=== PATIENT | female | born 1990 | race Asian ===

== ENCOUNTER 2017-05-24 21:00 | Inpatient (IN) | payer MEDICAID, SELFPAY ==
[~2017-05-24] VITALS: Ht 162.6 cm; Wt 61.9 kg
[2017-05-24] MEDS ORDERED: MORPHINE SULFATE 4 MG/ML, 1ML ONE (21:50)
[2017-05-24] MEDS ORDERED: ONDANSETRON 2MG/ML, 2ML ONE (21:51)
[2017-05-24] MEDS ORDERED: KETOROLAC 30 MG/1 ML ONE (21:51)
[2017-05-24] MEDS ORDERED: KETOROLAC 30 MG/1 ML IVPush ONE (22:00)
[2017-05-24] MEDS ORDERED: ONDANSETRON 2MG/ML, 2ML IVPush ONE (22:00)
[2017-05-24] MEDS ORDERED: SODIUM CHLORIDE 0.9% 1,000ML IVBOLUS ONE (22:00)
[2017-05-24] MEDS: MORPHINE SULFATE 4 MG/ML, 1ML IVPush PRN (22:09)
[2017-05-24 22:36] LABS: ASPARTATE AMINO TRANSFERASE 14 U/L (15-37); BLOOD UREA NITROGEN 16 mg/dL (7-18)
[2017-05-24] MEDS ORDERED: CEFTRIAXONE PMX 1GM/50ML 50 ML IV ONE (23:30)
[2017-05-24] MEDS ORDERED: CEFTRIAXONE PMX 1GM/50ML 50 ML ONE (23:48)
[2017-05-25] MEDS ORDERED: POLYETHYLENE GLYCOL 17 GM PACKET PO PRN (01:30)
[2017-05-25] MEDS ORDERED: DOCUSATE 100 MG CAPSULE PO PRN (01:30)
[2017-05-25] MEDS ORDERED: morphine SULFATE 10 MG/ML, 1ML IVPush PRN (01:30)
[2017-05-25] MEDS ORDERED: CEFTRIAXONE PMX 1GM/50ML 50 ML IV SCH (01:30)
[2017-05-25] MEDS ORDERED: ACETAMINOPHEN 325 MG TABLET PO PRN (01:30)
[2017-05-25] MEDS ORDERED: MORPHINE SULFATE 4 MG/ML, 1ML ONE (02:19)
[2017-05-25] MEDS: MORPHINE SULFATE 4 MG/ML, 1ML IVPush PRN (02:21)
[2017-05-25 02:38] VITALS: BP 102/69
[2017-05-25] MEDS: NS + 20MEQ KCL 1,000 ML IV SCH ×2 (03:11→11:25)
[2017-05-25 06:43] VITALS: BP 103/66
[2017-05-25] MEDS: SODIUM CHLORIDE 0.9% 1,000 ML IV SCH ×2 (08:30→23:00)
[2017-05-25] MEDS ORDERED: POTASSIUM CHLORIDE 20 MEQ TAB.ER.PRT PO ONE (08:30)
[2017-05-25] MEDS: ONDANSETRON 2MG/ML, 2ML IVPush PRN ×3 (08:45→20:35)
[2017-05-25 09:47] LABS: BLOOD UREA NITROGEN 6 mg/dL (7-18)
[2017-05-25] MEDS: HYDROmorphone 1 MG/ML, 1ML IV PRN ×4 (11:24→20:29)
[2017-05-25 12:32] VITALS: BP 107/69
[2017-05-25 18:40] VITALS: BP 114/74
[2017-05-26] MEDS: HYDROmorphone 1 MG/ML, 1ML IV PRN ×7 (00:43→22:27)
[2017-05-26 00:49] VITALS: BP 106/74
[2017-05-26] MEDS: ONDANSETRON 2MG/ML, 2ML IVPush PRN ×3 (05:09→18:34)
[2017-05-26 06:17] LABS: BLOOD UREA NITROGEN 4 mg/dL (7-18)
[2017-05-26 06:48] VITALS: BP 107/70
[2017-05-26] MEDS: SODIUM CHLORIDE 0.9% 1,000 ML IV SCH ×2 (10:35→22:28)
[2017-05-26] MEDS ORDERED: METHOTREXATE IM ONE (12:00)
[2017-05-26 13:40] VITALS: BP 110/72
[2017-05-26] MEDS: PIPERACILLIN/TAZO/PMX 3.375GM 50 ML IV SCH ×2 (14:06→19:33)
[2017-05-26] MEDS: HYDROcodone/APAP 5/325 TABLET PO PRN (18:34)
[2017-05-26 19:22] VITALS: BP 126/82
[2017-05-27 01:12] VITALS: BP 107/71
[2017-05-27] MEDS: HYDROmorphone 1 MG/ML, 1ML IV PRN ×7 (01:40→21:30)
[2017-05-27] MEDS: ONDANSETRON 2MG/ML, 2ML IVPush PRN ×2 (01:40→08:29)
[2017-05-27] MEDS: PIPERACILLIN/TAZO/PMX 3.375GM 50 ML IV SCH ×4 (01:48→22:55)
[2017-05-27] MEDS: HYDROcodone/APAP 5/325 TABLET PO PRN ×3 (03:57→17:11)
[2017-05-27 06:01] LABS: BLOOD UREA NITROGEN 5 mg/dL (7-18)
[2017-05-27 07:46] VITALS: BP 99/65
[2017-05-27] MEDS ORDERED: POTASSIUM CHLORIDE 20 MEQ TAB.ER.PRT PO ONE (08:00)
[2017-05-27] MEDS: SODIUM CHLORIDE 0.9% 1,000 ML IV SCH ×2 (08:29→21:30)
[2017-05-27 16:10] VITALS: BP 113/73
[2017-05-27 19:27] VITALS: BP 109/68
[2017-05-28] MEDS: HYDROcodone/APAP 5/325 TABLET PO PRN ×3 (00:20→17:45)
[2017-05-28 01:28] VITALS: BP 104/62
[2017-05-28] MEDS: HYDROmorphone 1 MG/ML, 1ML IV PRN ×7 (03:19→22:35)
[2017-05-28] MEDS: PIPERACILLIN/TAZO/PMX 3.375GM 50 ML IV SCH ×4 (05:24→22:34)
[2017-05-28 06:21] LABS: BLOOD UREA NITROGEN 4 mg/dL (7-18)
[2017-05-28] MEDS: ONDANSETRON 2MG/ML, 2ML IVPush PRN (06:25)
[2017-05-28 08:05] VITALS: BP 126/81
[2017-05-28] MEDS: SODIUM CHLORIDE 0.9% 1,000 ML IV SCH ×2 (08:34→17:45)
[2017-05-28 15:20] VITALS: BP 96/64
[2017-05-28] MEDS: MAGNESIUM HYDROXIDE 8%, 30ML UDC PO SCH (15:34)
[2017-05-28 17:54] VITALS: BP 120/80
[2017-05-28 19:10] VITALS: BP 114/72
[2017-05-29] MEDS: HYDROcodone/APAP 5/325 TABLET PO PRN ×3 (00:15→18:32)
[2017-05-29 01:32] VITALS: BP 100/65
[2017-05-29] MEDS: HYDROmorphone 1 MG/ML, 1ML IV PRN ×7 (02:09→22:47)
[2017-05-29] MEDS: PIPERACILLIN/TAZO/PMX 3.375GM 50 ML IV SCH ×4 (04:57→22:47)
[2017-05-29 05:26] LABS: BLOOD UREA NITROGEN 5 mg/dL (7-18)
[2017-05-29] MEDS: SODIUM CHLORIDE 0.9% 1,000 ML IV SCH ×2 (06:38→15:42)
[2017-05-29 07:17] VITALS: BP 114/71
[2017-05-29] MEDS: MAGNESIUM HYDROXIDE 8%, 30ML UDC PO SCH (08:29)
[2017-05-29] MEDS ORDERED: MAGNESIUM HYDROXIDE 8%, 30ML UDC PO SCH (09:00)
[2017-05-29 13:50] VITALS: BP 128/73
[2017-05-29 18:56] VITALS: BP 136/90
[2017-05-30 04:07] VITALS: BP 128/73
[2017-05-30] MEDS: HYDROmorphone 1 MG/ML, 1ML IV PRN (04:23)
[2017-05-30] MEDS: SODIUM CHLORIDE 0.9% 1,000 ML IV SCH (04:23)
[2017-05-30] MEDS: PIPERACILLIN/TAZO/PMX 3.375GM 50 ML IV SCH (04:23)
[2017-05-30 05:48] LABS: ASPARTATE AMINO TRANSFERASE 28 U/L (15-37); BLOOD UREA NITROGEN 4 mg/dL (7-18)
[2017-05-30 06:25] VITALS: BP 132/87
[2017-05-30] MEDS: HYDROcodone/APAP 5/325 TABLET PO PRN ×3 (06:35→18:37)
[2017-05-30] MEDS ORDERED: POLYETHYLENE GLYCOL 17 GM PACKET NG ONE (07:30)
[2017-05-30] MEDS ORDERED: morphine SULFATE 10 MG/ML, 1ML IVPush PRN (07:30)
[2017-05-30] MEDS: CEFTRIAXONE PMX 1GM/50ML 50 ML IV SCH (08:21)
[2017-05-30] MEDS: MAGNESIUM HYDROXIDE 8%, 30ML UDC PO SCH (09:00)
[2017-05-30 13:47] VITALS: BP 137/99
[2017-05-30 22:10] VITALS: BP 126/79
[2017-05-31] MEDS: HYDROcodone/APAP 5/325 TABLET PO PRN ×2 (06:39→15:19)
[2017-05-31 06:55] VITALS: BP 102/67
[2017-05-31] MEDS ORDERED: POTASSIUM CHLORIDE 20 MEQ TAB.ER.PRT PO ONE (08:00)
[2017-05-31] MEDS: CEFTRIAXONE PMX 1GM/50ML 50 ML IV SCH (08:08)
[2017-05-31] MEDS: MAGNESIUM HYDROXIDE 8%, 30ML UDC PO SCH (08:08)
[2017-05-31 08:14] LABS: BLOOD UREA NITROGEN 8 mg/dL (7-18)
[2017-05-31 12:23] VITALS: BP 109/70
[2017-05-31 18:25] VITALS: BP 104/66
[2017-05-31] MEDS ORDERED: morphine SULFATE 10 MG/ML, 1ML IVPush PRN (19:30)
[2017-06-01 03:50] VITALS: BP 104/76
[2017-06-01] MEDS: HYDROcodone/APAP 5/325 TABLET PO PRN (06:29)
[2017-06-01 06:57] VITALS: BP 93/64
[2017-06-01 08:29] LABS: BLOOD UREA NITROGEN 13 mg/dL (7-18)
[2017-06-01] MEDS: CEFTRIAXONE PMX 1GM/50ML 50 ML IV SCH (08:45)
[2017-06-01] MEDS: MAGNESIUM HYDROXIDE 8%, 30ML UDC PO SCH (08:52)
[2017-06-01] MEDS ORDERED: LEVO750T6 PO (11:31)
[2017-06-01] MEDS ORDERED: HYDR-883 PO (11:31)
== END 2017-06-01 11:29 | disposition home or self-care (01) | DRG 777 ==
LOC: ED 23:45 → EDIP 05-25 01:08 → 3NE 05-25 02:27
PROVIDERS: ADMIT Family Medicine; ATTEND Family Medicine
DX: O00.90 Unspecified ectopic pregnancy without intrauterine pregnancy (principal); E43 Unspecified severe protein-calorie malnutrition; R65.20 Severe sepsis without septic shock; O08.82 Sepsis following ectopic and molar pregnancy; O08.83 Urinary tract infection following an ectopic and molar pregnancy; N10 Acute pyelonephritis; O08.5 Metabolic disorders following an ectopic and molar pregnancy; O08.89 Other complications following an ectopic and molar pregnancy; B96.20 Unspecified Escherichia coli [E. coli] as the cause of diseases classified elsewhere; I95.9 Hypotension, unspecified
CPT/HCPCS: 36415; 76770; 76830; 80048; 80053; 81001; 82040; 83605; 83690; 83735; 84145; 84702; 84703; 85025; 87040; 87077; 87086; 87186; 96361; 96365; 96375; J0696; J1170; J1885; J2405; J2543; J3480; J9250; J2270; J7030

== ENCOUNTER 2018-12-06 15:38 | Emergency (ER) | payer SELFPAY ==
[~2018-12-06] VITALS: Ht 162.6 cm; Wt 50.0 kg
[~2018-12-06 15:38] MED LIST: HYDR-3652 PO; LEVO750T6 PO
[2018-12-06 15:51] VITALS: BP 118/81
--- NOTE | 2018-12-06 16:00 | NUR ---
ROEB. REPORT RECEIVED BY EMS. PT C/O GENERALIZED WEAKNESS SINCE LAST NIGHT . PT USED [facility] LAST NIGHT AROUND 2 AM. PT DENIES CHEST PAIN/N/V/D AT THIS TIME. NEURO INTACT. NO ETOH. PT AOX4. RESPS EVEN AND UNLABORED. ALL MONITORS IN PLACE. CALL LIGHT WITHIN REACH. NSR ON [facility] WITHOUT ECTOPY RATE 80'S.
--- NOTE | 2018-12-06 16:13 | NUR ---
EDMD AT BEDSIDE TO EXPLAIN POC AT THIS TIME.
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
== END 2018-12-06 16:58 | disposition left against medical advice (07) ==
LOC: ED 16:40
DX: F15.10 Other stimulant abuse, uncomplicated (principal); F17.200 Nicotine dependence, unspecified, uncomplicated
CPT/HCPCS: 93005; 99283